=== PATIENT | female | born 1940 | race Caucasian/White ===

== ENCOUNTER 2017-11-07 15:49 | Inpatient (IN) | payer OTHER ==
[~2017-11-07] VITALS: Ht 170.2 cm; Wt 81.7 kg
[~2017-11-07 15:49] MED LIST: CLOP75TA41 PO; DOCU-94 PO; HYDR-4683 PO; METO25TA5 PO; OMEP20CA74 PO; SERT-274 PO; TEMA30CA PO
[2017-11-07 16:49] LABS: Basophils # (auto) 0.1 uL; Basophils % (auto) 0.5 % (0.0-2.0); Eosinophils # (auto) 0.3 uL; Eosinophils % (auto) 2.5 % (0.0-7.0); Hemoglobin 12.7 g/dL (12.2-16.2); Lymphocytes # (auto) 1.4 uL; Lymphocytes % (auto) 13.2 % (10.0-50.0); Mean Corpuscular Hemoglobin 30.3 pg (28.0-32.0); Mean Corpuscular Hgb Conc. 33.4 g/dL (32.0-36.0); Mean Corpuscular Volume 90.7 fL (80.0-100.0); Monocytes # (auto) 0.8 uL; Monocytes % (auto) 7.4 % (0.0-12.0); Neutrophils # (auto) 8.4 uL; Neutrophils % (auto) 76.4 % (37.0-80.0); Platelet Count (auto) 190 10^3/uL (140-450); Red Blood Cells 4.18 10^6/uL (4.0-5.20); Red Cell Distribution Width 12.3 % (11.8-14.3)
[2017-11-07 16:57] LABS: Alanine Aminotransferase 81 U/L (13-56); Albumin 2.6 g/dL (3.4-5.0); Anion Gap 8 (5-15); BUN/Creatinine Ratio 25.4; Blood Urea Nitrogen 47 mg/dL (7-18); Calcium 8.9 mg/dL (8.5-10.1); Carbon Dioxide 26 mmol/L (21-32); Chloride 103 mmol/L (98-107); GFR African American 34 mL/min; GFR Non-African American 28 mL/min; Glucose 107 mg/dL (74-106); Magnesium 2.2 mg/dL (1.6-2.6); Potassium 4.7 mmol/L (3.5-5.1); Sodium 137 mmol/L (136-145)
[2017-11-07 17:03] LABS: Alkaline Phosphatase 151 U/L (45-117); Aspartate Aminotransferase 29 U/L (15-37); Bilirubin, Total 0.7 mg/dL (0.2-1.0); Total Protein 6.2 g/dL (6.4-8.2)
[2017-11-07] MEDS ORDERED: POTA20TA53 PO (17:05)
[2017-11-07] MEDS ORDERED: FURO20TA3 PO (17:05)
[2017-11-07] MEDS ORDERED: SENN1TAB14 PO (17:05)
[2017-11-07] MEDS ORDERED: RISP0.2512 PO (17:05)
[2017-11-07] MEDS ORDERED: TRAM50TA2 PO (17:05)
[2017-11-07 17:19] LABS: Amylase 34 U/L (25-115); Lipase 84 U/L (73-393)
[2017-11-07 17:22] LABS: INR 0.95 (0.9-1.15); Partial Thromboplastin Time 31.5 sec (22.64-33.71); Prothrombin Time 10.3 sec (9.37-12.3)
[2017-11-07 22:10] LABS: Urine Bacteria MANY /hpf (None Seen); Urine Blood TRACE /uL (Negative); Urine Hyaline Cast FEW /lpf (0 - 2); Urine Specific Gravity 1.016 (1.001-1.035); Urine WBC 57 /hpf (0 - 5); Urine WBC Clumps PRESENT /hpf (None Seen)
[2017-11-07] MEDS ORDERED: cefTRIAXone 1GM/10ml IVPUSH 10 ML IV ONE (22:45)
[2017-11-08] MEDS ORDERED: ACETAMINOPHEN 500 MG TAB PO PRN (00:45)
[2017-11-08] MEDS ORDERED: LORazepam 0.5 MG TAB PO PRN (00:45)
[2017-11-08] MEDS ORDERED: HYDROcodone-ACET 5/325MG TAB PO PRN (00:45)
[2017-11-08] MEDS ORDERED: ONDANSETRON HCL 4 MG/2 ML VIAL IV PRN (00:45)
[2017-11-08] MEDS ORDERED: TEMAZEPAM 15 MG CAP PO PRN (01:15)
[2017-11-08 01:52] VITALS: BP 120/69
[2017-11-08 02:02] VITALS: BP 120/69
[2017-11-08 05:57] VITALS: BP 140/74
[2017-11-08 07:28] LABS: Basophils # (auto) 0 uL; Basophils % (auto) 0.3 % (0.0-2.0); Eosinophils # (auto) 0.3 uL; Eosinophils % (auto) 3.2 % (0.0-7.0); Hematocrit 36.1 % (36.0-46.0); Hemoglobin 12.4 g/dL (12.2-16.2); Lymphocytes # (auto) 0.9 uL; Lymphocytes % (auto) 9.3 % (10.0-50.0); Mean Corpuscular Hemoglobin 30.8 pg (28.0-32.0); Mean Corpuscular Hgb Conc. 34.4 g/dL (32.0-36.0); Mean Corpuscular Volume 89.7 fL (80.0-100.0); Monocytes # (auto) 0.7 uL; Monocytes % (auto) 7.6 % (0.0-12.0); Neutrophils # (auto) 7.5 uL; Neutrophils % (auto) 79.6 % (37.0-80.0); Platelet Count (auto) 175 10^3/uL (140-450); Red Blood Cells 4.03 10^6/uL (4.0-5.20); Red Cell Distribution Width 12.3 % (11.8-14.3); White Blood Cell 9.4 10^3/uL (4.4-10.8)
[2017-11-08 07:43] LABS: Calcium 9.2 mg/dL (8.5-10.1); Potassium 4.6 mmol/L (3.5-5.1)
[2017-11-08 09:29] VITALS: BP 118/53
[2017-11-08] MEDS ORDERED: DOCUSATE SOD 100 MG CAP PO SCH (10:00)
[2017-11-08] MEDS ORDERED: POTASSIUM CHL 20 Meq TABLET PO SCH (10:00)
[2017-11-08] MEDS ORDERED: FUROSEMIDE 40 MG TAB PO SCH (10:00)
[2017-11-08] MEDS ORDERED: SERTRALINE HCL 50 MG TAB PO SCH (10:00)
[2017-11-08] MEDS ORDERED: CLOPIDOGREL BISULFATE 75 MG TAB PO SCH (10:00)
[2017-11-08] MEDS ORDERED: METOPROLOL TARTRATE 25 MG TAB PO SCH (10:00)
[2017-11-08] MEDS ORDERED: risperiDONE 1 MG TAB PO SCH (10:00)
[2017-11-08 12:30] VITALS: BP 106/56
[2017-11-08] MEDS ORDERED: SENN1TAB14 PO (12:48)
[2017-11-08] MEDS ORDERED: POLY33504 PO (12:48)
[2017-11-08] MEDS ORDERED: LEVO500T21 PO (12:48)
[2017-11-08] MEDS ORDERED: DOCU-94 PO (12:48)
[2017-11-08] MEDS ORDERED: MOMLQ PO (12:48)
[2017-11-08 17:03] VITALS: BP 110/61
[2017-11-08] MEDS ORDERED: cefTRIAXone 1GM/10ml IVPUSH 10 ML IV SCH (22:00)
== END 2017-11-08 21:00 | disposition home health service (06) | DRG 445 ==
LOC: EDBD 15:49 → ER 15:51 → EAST 15:52
PROVIDERS: ADMIT Nurse Practitioner Family; ATTEND Internal Medicine
DX: K80.20 Calculus of gallbladder without cholecystitis without obstruction (principal); N39.0 Urinary tract infection, site not specified; G81.91 Hemiplegia, unspecified affecting right dominant side; I11.0 Hypertensive heart disease with heart failure; I50.9 Heart failure, unspecified; F17.200 Nicotine dependence, unspecified, uncomplicated; F03.90 Unspecified dementia, unspecified severity, without behavioral disturbance, psychotic disturbance, mood disturbance, and anxiety; I25.10 Atherosclerotic heart disease of native coronary artery without angina pectoris; G25.81 Restless legs syndrome; F32.9 Major depressive disorder, single episode, unspecified; G47.00 Insomnia, unspecified; K21.9 Gastro-esophageal reflux disease without esophagitis; K59.00 Constipation, unspecified; Z74.01 Bed confinement status; Z79.899 Other long term (current) drug therapy; Z86.73 Personal history of transient ischemic attack (TIA), and cerebral infarction without residual deficits; Z90.49 Acquired absence of other specified parts of digestive tract
CPT/HCPCS: 36415; 51702; 71045; 74176; 76705; 80048; 80053; 81001; 82150; 83605; 83690; 83735; 84484; 85025; 85610; 85730; 87040; 87086; 93005; 94761; 96374

== ENCOUNTER 2019-06-13 09:06 | Inpatient (IN) | payer OTHER ==
[~2019-06-13] VITALS: Ht 167.6 cm; Wt 66.7 kg
[~2019-06-13 09:06] MED LIST changes: +FURO20TA3 PO; -HYDR-4683 PO; +HYDR-4833 PO; +LEVO500T21 PO; +MOMLQ PO; +POLY33504 PO; +POTA-220 PO; +RISP0.2512 PO; +SENN1TAB14 PO; +TRAM50TA2 PO
[2019-06-13 09:59] LABS: Basophils # (auto) 0 uL; Basophils % (auto) 0.3 % (0.0-2.0); Eosinophils # (auto) 0.1 uL; Eosinophils % (auto) 0.8 % (0.0-7.0); Hematocrit 33.1 % (36.0-46.0); Hemoglobin 11.2 g/dL (12.2-16.2); Lymphocytes # (auto) 0.7 uL; Lymphocytes % (auto) 7.6 % (10.0-50.0); Mean Corpuscular Hemoglobin 31.9 pg (28.0-32.0); Mean Corpuscular Hgb Conc. 33.9 g/dL (32.0-36.0); Mean Corpuscular Volume 93.9 fL (80.0-100.0); Monocytes # (auto) 0.9 uL; Monocytes % (auto) 9.9 % (0.0-12.0); Neutrophils # (auto) 7.4 uL; Neutrophils % (auto) 81.4 % (37.0-80.0); Platelet Count (auto) 189 10^3/uL (140-450); Red Blood Cells 3.52 10^6/uL (4.0-5.20); Red Cell Distribution Width 12.8 % (11.8-14.3); White Blood Cell 9.1 10^3/uL (4.4-10.8)
[2019-06-13 10:20] LABS: Anion Gap 7 (5-15); Blood Urea Nitrogen 50 mg/dL (7-18); Carbon Dioxide 27 mmol/L (21-32); Chloride 105 mmol/L (98-107); Glucose 119 mg/dL (74-106); Potassium 4.9 mmol/L (3.5-5.1); Sodium 139 mmol/L (136-145)
[2019-06-13 10:21] LABS: Alanine Aminotransferase 29 U/L (13-56); Albumin 2.4 g/dL (3.4-5.0); Aspartate Aminotransferase 14 U/L (15-37); BUN/Creatinine Ratio 24.8; Calcium 8.8 mg/dL (8.5-10.1); GFR African American 31 mL/min; GFR Non-African American 25 mL/min
[2019-06-13 10:25] LABS: Alkaline Phosphatase 208 U/L (45-117); Bilirubin, Total 0.7 mg/dL (0.2-1.0); Total Protein 6.1 g/dL (6.4-8.2)
[2019-06-13 12:01] LABS: Urine Bacteria MOD /hpf (None Seen); Urine Blood 1+ /uL (Negative); Urine Hyaline Cast MANY /lpf (0 - 2); Urine Mucus FEW (None Seen); Urine Specific Gravity 1.014 (1.001-1.035); Urine WBC 1009 /hpf (0 - 5); Urine WBC Clumps PRESENT /hpf (None Seen)
[2019-06-13] MEDS ORDERED: cefTRIAXone 1GM/50ML D5W 50 ML IV ONE (12:30)
[2019-06-13] MEDS ORDERED: AZITHROMYCIN 500MG/ 250ML 250 ML IV ONE (17:30)
[2019-06-13] MEDS ORDERED: MORPHINE SULF INJ 2 MG/ML SYRINGE 1ML IV PRN (18:15)
[2019-06-13] MEDS ORDERED: LEVOFLOXACIN 500MG 100 ML IV ONE (18:15)
[2019-06-13] MEDS ORDERED: NITROGLYCERIN 0.4 MG SL TAB SL PRN (18:15)
[2019-06-13] MEDS ORDERED: ACETAMINOPHEN 325 MG TAB PO PRN (18:15)
[2019-06-13] MEDS: SODIUM CHLORIDE 0.9% 1,000 ML IV SCH (18:58)
[2019-06-13 20:15] VITALS: BP 109/62
--- NOTE | 2019-06-13 20:20 | NUR ---
Admission Note Pt admitted to room 201 in stable cond. Pt oriented to room and procedures and POC discussed with pt and pt verbalizes understanding. Pt has hx CVA and is with pressured speech, aphasic, right sided facial droop ,and right sided upper and lower extremity deficits. Pt appears to be alert and oriented to self and is able to answer some questions appropriately. Bed is low, wheels are locked, and call light is with in reach. Bed alarm is set for pt safety.
[2019-06-13] MEDS: METOPROLOL TARTRATE 25 MG TAB PO SCH (23:26)
[2019-06-13] MEDS: TEMAZEPAM 15 MG CAP PO SCH (23:26)
[2019-06-13] MEDS: risperiDONE 1 MG TAB PO SCH (23:26)
[2019-06-13] MEDS: SERTRALINE HCL 50 MG TAB PO SCH (23:27)
--- NOTE | 2019-06-13 23:49 | NUR ---
MED REC VERIFICATION: Attempted to verify patient's home medication list with caregiver Shankar Ortegaebenezer: [phone]. Unable to verify at this time because caregiver does not have the list of medications with him at this time and stated to call back during the day. Will endorse to day shift RN.
[2019-06-14] MEDS ORDERED: PNEUMOCOCCAL VACC POLYS 25 MCG/0.5 ML VIAL IM ONE (00:15)
[2019-06-14] MEDS ORDERED: INFLUENZA QUAD 2019-2020 0.5ml SYRG IM ONE (00:15)
[2019-06-14] MEDS: SODIUM CHLORIDE 0.9% 1,000 ML IV SCH ×3 (04:15→22:22)
[2019-06-14 05:00] VITALS: BP 125/69
--- NOTE | 2019-06-14 07:50 | NUR ---
PT AND 0 X 1, BUT POSSIBLY MORE PT HAS DIFFICULTY SPEAKING. APPOX 300 MLS CLEAR YELLOW URINE NOTED IN BLACK. BED ALARM ON. PT TURNED TO LEFT SIDE. PT REPORTS SLIGHT PAIN IN RIGHT LEG. WILL CONTINUE TO MONITOR.
[2019-06-14 09:00] VITALS: BP 140/72
--- NOTE | 2019-06-14 09:21 | NUR ---
CONTACT INFO BROTHER REPORTS PT HOME CARE IS [facility] [address] [facility], [id number]. HOUSE PHONE [phone]. [facility] [phone] CELL NUMBER. BETHANY DORSEY BROTHER, .
[2019-06-14] MEDS ORDERED: PANTOPRAZOLE 40 MG TAB PO SCH (10:00)
[2019-06-14] MEDS: SENNA 8.6 MG TAB PO SCH (10:52)
[2019-06-14] MEDS: CLOPIDOGREL BISULFATE 75 MG TAB PO SCH (10:53)
[2019-06-14] MEDS: risperiDONE 1 MG TAB PO SCH ×2 (10:54→22:21)
[2019-06-14] MEDS: METOPROLOL TARTRATE 25 MG TAB PO SCH ×2 (10:54→22:20)
[2019-06-14] MEDS: NIFEdipine ER 30 MG TAB PO SCH (10:55)
[2019-06-14] MEDS: POTASSIUM CHL 20 Meq TABLET PO SCH (10:56)
[2019-06-14] MEDS: FUROSEMIDE 40 MG TAB PO SCH (10:56)
[2019-06-14] MEDS: SERTRALINE HCL 50 MG TAB PO SCH ×2 (10:57→22:21)
--- NOTE | 2019-06-14 11:00 | NUR ---
CRUSHED PATIENT MEDICATIONS AND GAVE WITH APPLE SAUCE, PT TOLERATED WELL. NO SIGNS OF ASPIRATION. PT REPOSITIONED TO RIGHT AND SACRUM CLEANED WITH NEW Z GUARD AND OPTIFOAM APPLIED.
--- NOTE | 2019-06-14 11:20 | NUR ---
CALLED PBX AND PAGED SPEECH THERAPY FOR SWALLOW EVAL.
--- NOTE | 2019-06-14 11:49 | NUR ---
NUTRITION CONSULT/ASSESSMENT NOTES Please refer to link notes of nutrition screen form filed under the intervention section of the plan of care for further details. Est. Needs: 1700 kcal to 2050 kcal (25-30 kcal/kgBW), 54 gms to 68 gms pro (0.8-1.0 gms/kgBW). Will continue to monitor pertinent labs and reassess nutrient need prn Thank you for this consult. Addendum: 06/14/19 at [address] Amended: Links added.
[2019-06-14 13:00] VITALS: BP 96/50
[2019-06-14 13:41] LABS: Basophils # (auto) 0 uL; Basophils % (auto) 0.7 % (0.0-2.0); Eosinophils # (auto) 0.1 uL; Eosinophils % (auto) 1.8 % (0.0-7.0); Hematocrit 33.4 % (36.0-46.0); Hemoglobin 11.4 g/dL (12.2-16.2); Lymphocytes # (auto) 0.9 uL; Lymphocytes % (auto) 12.6 % (10.0-50.0); Mean Corpuscular Hemoglobin 31.9 pg (28.0-32.0); Mean Corpuscular Volume 93.7 fL (80.0-100.0); Monocytes # (auto) 0.5 uL; Monocytes % (auto) 7.2 % (0.0-12.0); Neutrophils # (auto) 5.6 uL; Neutrophils % (auto) 77.7 % (37.0-80.0); Platelet Count (auto) 208 10^3/uL (140-450); Red Blood Cells 3.57 10^6/uL (4.0-5.20); Red Cell Distribution Width 12.6 % (11.8-14.3); White Blood Cell 7.2 10^3/uL (4.4-10.8)
--- NOTE | 2019-06-14 13:47 | NUR ---
SPOKE WITH DR VARGAS. NEW ORDERS TO DC PATIENT ONCE CLEARED BY DR BYRD. DR BYRD REPORTS HE SAW PATIENT AND IS JUST WAITING ON NEW LABS TO DC PATIENT. NEW ORDERS TO WEAN OFF 02 AND DC BLACK.
[2019-06-14] MEDS ORDERED: NITR-52 PO ×2 (13:56→13:59)
[2019-06-14] MEDS ORDERED: DOXY-338 PO (13:56)
[2019-06-14] MEDS ORDERED: LEVO500T21 PO (13:56)
[2019-06-14] MEDS ORDERED: NITROFURANTOIN (MONO) 100 mg CAP PO ONE (14:00)
[2019-06-14] MEDS ORDERED: DOXYCYCLINE 100 MG TAB/CAP PO ONE (14:00)
[2019-06-14 14:07] LABS: BUN/Creatinine Ratio 29.9; Potassium 3.9 mmol/L (3.5-5.1)
--- NOTE | 2019-06-14 14:15 | NUR ---
DC'D BLACK PER MD ORDER. APPROX 725 MLS CLEAR YELLOW URINE NOTED IN BAG. PT OXYGEN 90 PERCENT ON ROOM AIR. MRSA SWAB SENT AND LILLY AREA CLEANED.
--- NOTE | 2019-06-14 14:44 | NUR ---
CALLED DON CAREGIVER, [facility] REPORTS PT HAS NOT RECEIVED FLU OR PNEUMONIA VACCINE THIS YEAR, WILL GIVE BOTH.
--- NOTE | 2019-06-14 15:15 | NUR ---
02 GOING DOWN TO 86 PERCENT ON ROOM AIR, 2 L NC PUT BACK ON PATIENT. WILL NOTIFY DR VARGAS.
--- NOTE | 2019-06-14 15:47 | NUR ---
CALLED AND LEFT MESSAGE FOR DR TYE CHEUNG MD KNOW PT 02 GOING TO 86 ON ROOM AIR. AWAITING CALL BACK. SPEECH THERAPIST HERE TO DO SWALLOW EVAL
--- NOTE | 2019-06-14 16:10 | NUR ---
D/C Planning Per SS consult for home health and to return to [facility]. Contacted [facility] ph:) Fax:) faxed medical records. Per Uzma from [facility] pt has been accepted and service to start within 48hrs upon d/c day. Contacted Tadeo Ph:) from [facility] advised him Pt will be discharging once Dr. Max saavedra Pt. Pt brother Dominguez Ph:) will be transporting Pt to [facility] [address] [facility] [address].
--- NOTE | 2019-06-14 16:27 | NUR ---
D/C Planning Per second consult order for home oxygen 2l/min via nasal cannula continuous. Contacted [facility] Ph:) Fax:) faxed medical records. Contacted [facility]:( [phone]) Fax:( [phone]) faxed medical records requesting authorization for oxygen. pending on authorization.
--- NOTE | 2019-06-14 16:29 | NUR ---
SWALLOW EVALUATED. PATIENT ABLE TO FOLLOW DIRECTIONS. RIGHT SIDE WEAKNESS. PATIENT ABLE TO TOLERATE PUREE DIET TEXTURE WITH NECTAR THICKENED LIQUIDS. PATIENT COUGHED ON THIN LIQUIDS. VERY WEAK COUGH. NURSING NOTIFIED.
[2019-06-14 17:00] VITALS: BP 105/55
--- NOTE | 2019-06-14 17:25 | NUR ---
PROCUREMENT INTERNSHIP REPORTS PT VOIDED LARGE AMOUNT ON CHUCKS. PT CLEANED. PT REPORTS PAIN, WILL CHECK FOR PAIN MEDS.
[2019-06-14] MEDS: HYDROcodone-ACET 5/325MG TAB PO PRN (17:28)
[2019-06-14] MEDS ORDERED: LEVOFLOXACIN 250MG 50 ML IV SCH (18:00)
[2019-06-14 22:00] VITALS: BP 136/56
[2019-06-14] MEDS: NITROFURANTOIN (MONO) 100 mg CAP PO SCH (22:20)
[2019-06-14] MEDS: TEMAZEPAM 15 MG CAP PO SCH (22:21)
[2019-06-14] MEDS: DOXYCYCLINE 100 MG TAB/CAP PO SCH (22:21)
[2019-06-15 05:00] VITALS: BP 99/52
--- NOTE | 2019-06-15 08:30 | NUR ---
PT RESTING IN BED, NO DISTRESS NOTED. PT VOIDED LARGE AMOUNT ON CHUCKS. PT LILLY AREA CLEANED AND NEW CHUCKS PLACED. PT TURNED TO RIGHT SIDE. PT REPORTS PAIN ON RIGHT SIDE, PT RUBBING RIGHT LEG. PT REPORTS APPROX 5/10 FROM WHAT CAN BE UNDERSTOOD BEING VERBALIZED, WILL GIVE PRN PAIN MED. CALL LIGHT IN REACH, BED ALARM ON, WILL CONTINUE TO MONITOR.
[2019-06-15 09:00] VITALS: BP 107/53
[2019-06-15] MEDS: NIFEdipine ER 30 MG TAB PO SCH (10:00)
[2019-06-15] MEDS: HYDROcodone-ACET 5/325MG TAB PO PRN ×2 (10:16→22:48)
[2019-06-15] MEDS: NITROFURANTOIN (MONO) 100 mg CAP PO SCH (10:18)
[2019-06-15] MEDS: risperiDONE 1 MG TAB PO SCH ×2 (10:19→22:47)
[2019-06-15] MEDS: METOPROLOL TARTRATE 25 MG TAB PO SCH ×2 (10:20→22:46)
[2019-06-15] MEDS: FUROSEMIDE 40 MG TAB PO SCH (10:20)
[2019-06-15] MEDS: CLOPIDOGREL BISULFATE 75 MG TAB PO SCH (10:21)
[2019-06-15] MEDS: POTASSIUM CHL 20 Meq TABLET PO SCH (10:22)
[2019-06-15] MEDS: SODIUM CHLORIDE 0.9% 1,000 ML IV SCH ×2 (10:23→20:15)
[2019-06-15] MEDS: SERTRALINE HCL 50 MG TAB PO SCH ×2 (10:23→22:47)
[2019-06-15] MEDS: SENNA 8.6 MG TAB PO SCH (10:23)
[2019-06-15] MEDS: DOXYCYCLINE 100 MG TAB/CAP PO SCH (10:23)
--- NOTE | 2019-06-15 10:30 | NUR ---
PT REPOSITIONED TO LEFT SIDE.
--- NOTE | 2019-06-15 10:55 | NUR ---
WOUND CARE NOTE: PATIENT NOTED TO HAVE LOW DOMENICO SCORE OF 10. PLACED PATIENT ON SKIN INTEGRITY MONITORING FOR HER LOW DOMENICO SCORES. PATIENT HAS A DISCHARGE ORDER AT THIS TIME PENDING HOME OXYGEN AUTHORIZATION. PATIENT IS NOTED TO HAVE BLANCHABLE REDNESS TO THE RIGHT SACRUM. NO OPEN WOUNDS NOTED, ALL BONY PROMINENCES ARE BLANCHABLE. RECOMMEND IF PATIENT CONTINUES HER HOSPITAL STAY: FREQUENT TURN SCHEDULE Q 2 HOURS, PRN CONDITION PERMITS, WITH PRESSURE REDISTRIBUTION USING PILLOWS/WEDGES, BID/PRN APPLICATION WITH MOISTURE BARRIER CREAM TO SACRUM/BUTTOCKS/PERINEUM, COVERING UPPER SACRUM WITH OPTIFOAM GENTLE SACRAL DRESSING PREVENTATIVE, SPECIALTY AIR MATTRESS, DIETARY CONSULT, SKIN/WOUND CARE PLAN, CONTINUED MONITORING BY WOUND CARE TEAM.
--- NOTE | 2019-06-15 11:22 | NUR ---
CALLED DR BYRD TO REQUEST CLEARANCE FOR DC. LEFT MESSAGE WITH ANSWERING SERVICE, AWAITING CALL BACK. PAGED BOX LIDDER AND REQUSTED CALL BCK TO FOLLOW UP ON
--- NOTE | 2019-06-15 11:43 | NUR ---
CALLED [facility] AND SPOKE WITH LUIS ANTONIO. LUIS ANTONIO REPORTS SHE CANNOT GET A HOLD OF CAREGIVER TO COORDINATE DELIVERY.
--- NOTE | 2019-06-15 11:48 | NUR ---
CALLED [facility] CAREGIVER, REPORTED PT NEEDS HOME O2 AND FOR HIM TO CALL [facility] TO COORDINATE DELIVERY. YAKELIN CALLED BACK AND REPORTS PT HAS AUTHORIZATION FOR O2. NOTIFIED YAKELIN PT CAREGIVER [facility] NOTIFIED TO CALL [facility] TO COORDINATE DELIVERY.
--- NOTE | 2019-06-15 11:57 | NUR ---
WOUND CARE SAW PATIENT FOR HIGH DOMENICO SCORE. THEY REPORT TO APPLY Z GAURD AND OPTIFOAM TO SACRUM AND TOOK PHOTOS OF SACRUM.
--- NOTE | 2019-06-15 12:16 | NUR ---
PT REPOSITIONED TO RIGHT SIDE AND STUDENT NURSE PERFORMED ORAL CARE, BRUSHING AND RINSING OF TEETH.
--- NOTE | 2019-06-15 12:21 | NUR ---
DR BROWER CALLED BACK, REPORTS PT CAN BE DISCHARGED.
--- NOTE | 2019-06-15 12:26 | NUR ---
CALLED LUIS ANTONIO AT [facility]. LUIS ANTONIO REPORTS SHE SPOKE WITH CAREGIVER AND OXYGEN IS BEING DELIVERED TO [facility] PER CAREGIVER REQUEST, AND SHE REPORTS ELECTRON TUBE ASSEMBLER IS GOING TO ARRANGE MEDICAL TRANSPORT.
[2019-06-15 13:00] VITALS: BP 105/57
--- NOTE | 2019-06-15 13:07 | NUR ---
LAB CALLED, PT POSITIVE FOR ESBL IN URINE. PT ALREADY HAS ISOLATION PRECAUTIONS FOR ESBL IN URINE. CALLED AND LEFT MESSAGE FOR DR VARGAS. NOTIFIED MD PT WAS POSITIVE FOR ESBL IN URINE, PATIENT HOME HEALTH AND O2 SET UP, JUST WAITING ON DELIVERY TO [facility]. LEFT IN MESSAGE CAREGIVER MEJIA SETTING UP TRANSPORT WITH AMBULANCE COMPANY WHEN READY TO NC. NOTIFIED MD DR BROWER CLEARED PT FOR NEPHRO WELL. AWAITING CALL BACK.
--- NOTE | 2019-06-15 14:04 | NUR ---
PT REPOSITIONED BY SHIPPING RECEIVING CLERK.
--- NOTE | 2019-06-15 14:50 | NUR ---
SPOKE WITH BROTHER AND UPDATED HIM ON PLAN OF CARE. BROTHER NOTIFIED PT NEEDS HOME O2 AND HOME HEALTH. BROTHER NOTIFIED HOME HEALTH SET UP, DELIVERY OF 02 PENDING. BROTHER UPDATED ON PATIENT STATUS AND DIRECT CARE.
--- NOTE | 2019-06-15 16:13 | NUR ---
CALLED AND LEFT MESSAGE FOR DR VARGAS AND ASKED IF MD WANTS ABX FOR PATIENT UPON DISCHARGE. AWAITING CALL BACK.
--- NOTE | 2019-06-15 16:18 | NUR ---
CALLED LUIS ANTONIO FROM [facility], ASKED IF PT O2 HAS BEEN DELIVERED AND ASKED FOR A ETA IF IT HASN'T BEEN DELIVERED YET. LUIS ANTONIO REPORTS SHE WILL HAVE THE PLANE TABLEMAN CALL BACK TO GIVE AN ESTIMATED TIME OF DELIVERY.
--- NOTE | 2019-06-15 16:21 | NUR ---
CAREGIVER DON CALLED AND REPORTS 02 HAS BEEN DELIVERED TO [facility] PT HOME.
--- NOTE | 2019-06-15 16:34 | NUR ---
SPOKE WITH DR VARGAS. NOTIFIED MD PT HAS ESBL IN URINE. REQUESTS PICC LINE. CALLED HOUSE SUP, NO PICC NURSE UNTIL MONDAY. REPORTS TO DC PT TO SNIFF. NEW ORDERS FOR ERTAPENEM IV X 10 DAYS. SPOKE WITH ROWENA AND GOT APPROVAL. SPOKE WITH YAKELIN PAZ. YAKELIN REPORTS TO FAX FACE SHEET, H AND P, MED LIST, AND CHEST X RAY TO [facility], [facility], AND [facility] PATIENT AUTHORIZATION NUMBER IS [id number]. [facility] AUTH NUMBER [id number]. Addendum: 06/15/19 at 1751 by HUNG MACIAS RN [place]RE[place] AUTHORIZATION NUMBER IS [id number] AND [facility] AUTH NUMBER IS [id number].
[2019-06-15] MEDS ORDERED: INVANZ IV (16:39)
[2019-06-15 17:00] VITALS: BP 106/56
[2019-06-15] MEDS ORDERED: ERTAPENEM SOD INJ 1 GM in SODIUM CHL 0.9% 50 ML IV ONE (17:00)
[2019-06-15] MEDS ORDERED: PANTOPRAZOLE 40 MG TAB PO ONE (17:00)
--- NOTE | 2019-06-15 17:10 | NUR ---
TRANSFER PAPER WORK SIGNED BY DR VARGAS. ASKED MD IF PT COULD TRANSFER TO SNF W/O MIDLINE OR PICC LINE. REPORTS PT CAN. NEW ORDERS TO DC NITROFURANTOIN AND DOXYCYCLINE.
--- NOTE | 2019-06-15 17:43 | NUR ---
[employer] ARCHITECT FAXED PT INFORMATION TO: [facility] [phone], PHONE NUMBER [phone] [facility] FAX [phone], PHONE NUMBER [phone] [facility] [place] FAX [phone], PHONE NUMBER [phone] [facility] [place] FAX [phone] JOLEEN AT [facility] [phone] PT ISO INFORMATION AND ANTIBIOTIC PUT ON EVERY COVER SHEET PER YAKLEIN RASCON REQUEST. JOLEEN FROM [facility] CALLED AND REQUESTED PT RECORDS BE SENT TO [facility] AND [facility].
--- NOTE | 2019-06-15 18:38 | NUR ---
SPOKE WITH PATIENT . NOTIFIED PATIENT DOCTOR IS RECOMMENDING SHE GO TO A GROUP HOME FACILITY. ASKED PATIENT IF SHE WAS WILLING TO GO. PT SPEECH SLURRED, BUT PATIENT REPORTS, "I DON'T KNOW." PT BEGAN TO CRY. ASKED PATIENT IF SHE WAS IN PAIN, PT SHOOK HER HEAD NO. PT REPOSITIONED FROM SUPINE TO RIGHT SIDE. ASKED PATIENT IF SHE WANTED ME TO CALL HER BROTHER, PATIENT SHOOK HER HEAD YES. CALLED PT BROTHER, NOTIFIED HIM MD IS RECOMMENDING A GROUP HOME FACILITY. BROTHER REPORTS HE DOESN'T FEEL HIS SISTER WOULD BE COMFORTABLE AT A GROUP HOME FACILITY. NOTIFIED BROTHER PATIENT WANTS TO SEE HIM. BROTHER AWARE. BROTHER REPORTS HE WILL COME SEE HIS SISTER TOMORROW AT APPROX 0830.
[2019-06-15 22:00] VITALS: BP 113/59
[2019-06-15] MEDS: TEMAZEPAM 15 MG CAP PO SCH (22:46)
[2019-06-16] MEDS: METOPROLOL TARTRATE 25 MG TAB PO SCH (00:55)
[2019-06-16 05:00] VITALS: BP 101/59
[2019-06-16] MEDS: SODIUM CHLORIDE 0.9% 1,000 ML IV SCH (05:48)
[2019-06-16 06:29] LABS: Basophils # (auto) 0 uL; Basophils % (auto) 0.4 % (0.0-2.0); Eosinophils # (auto) 0.1 uL; Eosinophils % (auto) 1.6 % (0.0-7.0); Hematocrit 31.3 % (36.0-46.0); Hemoglobin 10.6 g/dL (12.2-16.2); Lymphocytes # (auto) 0.5 uL; Lymphocytes % (auto) 5.2 % (10.0-50.0); Mean Corpuscular Hgb Conc. 33.8 g/dL (32.0-36.0); Mean Corpuscular Volume 94.7 fL (80.0-100.0); Monocytes # (auto) 0.4 uL; Monocytes % (auto) 4.5 % (0.0-12.0); Neutrophils % (auto) 88.3 % (37.0-80.0); Platelet Count (auto) 222 10^3/uL (140-450); Red Cell Distribution Width 12.6 % (11.8-14.3); White Blood Cell 9.1 10^3/uL (4.4-10.8)
[2019-06-16 06:48] LABS: Potassium 3.2 mmol/L (3.5-5.1)
[2019-06-16 06:56] LABS: BUN/Creatinine Ratio 30.8
--- NOTE | 2019-06-16 07:23 | NUR ---
Opening Shift Note: Assumed care of patient, awake and alert. No S/S of distress/SOB or pain. Bed in lowest locked position, side rails up x 2, call light within reach. Patient instructed on POC and to call for assist PRN, will continue to monitor for changes Q1hr and PRN.
--- NOTE | 2019-06-16 08:41 | NUR ---
Family at bedside. Discussed POC with patient and family. Brother states that he does not want sister to go to SNF. Will continue to monitor patient.
[2019-06-16 09:00] VITALS: BP 119/57
--- NOTE | 2019-06-16 09:30 | NUR ---
WOUND CARE NOTE: ORDERED SYNERGY AIR ELITE AIR MATTRESS AT THIS TIME. PATIENT TO BE PLACED, PENDING DELIVERY BY [facility].
[2019-06-16] MEDS ORDERED: ERTAPENEM SOD INJ 1 GM in SODIUM CHL 0.9% 50 ML IV SCH (10:00)
[2019-06-16] MEDS: FUROSEMIDE 40 MG TAB PO SCH (10:24)
[2019-06-16] MEDS: risperiDONE 1 MG TAB PO SCH (10:24)
[2019-06-16] MEDS: POTASSIUM CHL 20 Meq TABLET PO SCH (10:24)
[2019-06-16] MEDS: SENNA 8.6 MG TAB PO SCH (10:25)
[2019-06-16] MEDS: CLOPIDOGREL BISULFATE 75 MG TAB PO SCH (10:25)
[2019-06-16] MEDS: SERTRALINE HCL 50 MG TAB PO SCH (10:25)
[2019-06-16] MEDS: NIFEdipine ER 30 MG TAB PO SCH (10:25)
--- NOTE | 2019-06-16 11:59 | NUR ---
[facility] called. States patient needs to be upgraded to level 4 transfer authorization before they can accept patient.
--- NOTE | 2019-06-16 12:45 | NUR ---
Dr. Arechiga called for patient status. Dr. winters. Will continue to monitor.
--- NOTE | 2019-06-16 12:50 | NUR ---
Patients brother contacted regarding patient pending placement in SNF. Brother first denied transfer but after educated on need for SNF at this time brother agreed to have patient transferred.
[2019-06-16 13:00] VITALS: BP 94/49
--- NOTE | 2019-06-16 13:01 | NUR ---
Dr. Arechiga paged regarding patient and family now willing to transfer to SNF at this time.
[2019-06-16] MEDS ORDERED: MUPIROCIN 2% OINT 15gm or 22gm EACHNOSTRI SCH (13:15)
--- NOTE | 2019-06-16 13:57 | NUR ---
division operations manager telephone directory distributor driver paged regarding transfer. Awaiting call back.
--- NOTE | 2019-06-16 14:07 | NUR ---
manager psychology canned food reconditioning inspector, called back. Gave number for Alisia to update level of transfer for patient.
--- NOTE | 2019-06-16 14:09 | NUR ---
Alisia ray. States she needs to speak with [facility] regarding transfer.
--- NOTE | 2019-06-16 14:11 | NUR ---
[facility] contacted. Informed them to contact case consultant Alisia for transfer update.
--- NOTE | 2019-06-16 16:24 | NUR ---
technology adoption manager Alisia contacted for an update regarding patients transfer to [facility].
[2019-06-16 17:00] VITALS: BP 127/72
--- NOTE | 2019-06-16 17:30 | NUR ---
IV removal: IV DC'd with clean sterile technique, catheter fully intact. Pressure dressing applied to site. Patient tolerated well.
--- NOTE | 2019-06-16 17:30 | NUR ---
IV insertion: IV access obtained, via clean sterile technique by inserting 20 gauge catheter at left forearm after 1 attempt. IV secured properly. No trauma to site. Patient tolerated well.
--- NOTE | 2019-06-16 17:53 | NUR ---
[facility] contact to set up transport for patient to [facility]. Estimated time of slat pickler is 1900
--- NOTE | 2019-06-16 18:00 | NUR ---
Attempted to call [facility]. No answer. Will attempt call again.
--- NOTE | 2019-06-16 18:11 | NUR ---
Called report to [facility].
[2019-06-16 18:20] VITALS: BP 119/59
--- NOTE | 2019-06-16 19:09 | NUR ---
Discharge wound photos taken.
--- NOTE | 2019-06-16 19:17 | NUR ---
[facility] ARRIVED TO TRANSPORT PATIENT. REPORT GIVEN TO TRANSPORT TEAM.
--- NOTE | 2019-06-16 19:39 | NUR ---
Discharge instructions given as ordered. All questions and concerns addressed. Patient verbalized understanding. Medication reconciliation form completed and copy given to patient. Telemetry unit returned to ICU. Report given to [facility]. Patient transported by [facility] with all personal belongings. No distress noted at time of departure.
[2019-06-17] MEDS ORDERED: PANTOPRAZOLE 40 MG TAB PO SCH (10:00)
--- NOTE | 2019-06-17 16:28 | NUR ---
operations architect 06/15/19 and 06/16/19 On 06/15/19 I received a page from Anita GASPAR stating patient has a consult for SNF for IV ABX. I had Anita fax to [facility] and [facility]. On 06/16/19 Per Cordell GRIFFIN accepted patient. Per Alisia shahid [facility] case management operations architect auth is [id number] for [facility] and [facility] AUTH is [id number]. [facility] was set for 1900 picket [employer]. Patient transferred to [facility] on 06/16/19. Addendum: 06/17/19 at 1631 by Arlyn PAZ Amended: Links added.
== END 2019-06-16 19:00 | DRG 871 ==
LOC: ER 09:06 → EDBD 09:06 → TELE 09:07 → TELE-CENTR 20:15
PROVIDERS: ADMIT Internal Medicine; ATTEND Internal Medicine
DX: A41.50 Gram-negative sepsis, unspecified (principal); J18.9 Pneumonia, unspecified organism; N17.0 Acute kidney failure with tubular necrosis; N39.0 Urinary tract infection, site not specified; I13.0 Hypertensive heart and chronic kidney disease with heart failure and stage 1 through stage 4 chronic kidney disease, or unspecified chronic kidney disease; F03.90 Unspecified dementia, unspecified severity, without behavioral disturbance, psychotic disturbance, mood disturbance, and anxiety; F32.9 Major depressive disorder, single episode, unspecified; I50.9 Heart failure, unspecified; E55.9 Vitamin D deficiency, unspecified; K21.9 Gastro-esophageal reflux disease without esophagitis; N18.3 Chronic kidney disease, stage 3 (moderate); I69.320 Aphasia following cerebral infarction
CPT/HCPCS: 36415; 36600; 70450; 71045; 74176; 80048; 80053; 81001; 82805; 83605; 84484; 85025; 87040; 87081; 87086; 87088; 87186; 92610; 96365; 96367; 97163; G0378; J0696; J1335; J1956

== ENCOUNTER 2022-01-03 20:48 | Inpatient (IN) | payer OTHER ==
[~2022-01-03] VITALS: Ht 170.2 cm; Wt 72.6 kg
[~2022-01-03 20:48] MED LIST changes: +AML5T PO; -CLOP75TA41 PO; +CLOP75TA70 PO; +FLUC100T34 PO; -FURO20TA3 PO; +INVANZ IV; -LEVO500T21 PO; -METO25TA5 PO; -OMEP20CA74 PO; +PANT1INJ3 PO; -POTA-220 PO; +SACC250C PO; -SERT-274 PO; +SERT50TA19 PO; -TEMA30CA PO; -TRAM50TA2 PO
[2022-01-03] MEDS ORDERED: ACETAMINOPHEN 650 MG RECT SUPP PR ONE (22:07)
[2022-01-03] MEDS ORDERED: PIPERACILLIN-TAZO 4.5GM 100 ML IV ONE (22:30)
[2022-01-03] MEDS ORDERED: VANCOMYCIN 1GM/250ML 250 ML IV ONE (22:30)
[2022-01-03 23:04] LABS: Basophils # (auto) 0 10 ^3/uL (0-0.2); Basophils % (auto) 0.1 % (0.0-2.0); Eosinophils # (auto) 0 10 ^3/uL (0-0.8); Hemoglobin 11.5 g/dL (12.2-16.2); Lymphocytes # (auto) 0.6 10 ^3/uL (0.4-5.4); Lymphocytes % (auto) 8.9 % (10.0-50.0); Mean Corpuscular Hemoglobin 30.5 pg (28.0-32.0); Mean Corpuscular Hgb Conc. 33.9 g/dL (32.0-36.0); Mean Corpuscular Volume 89.8 fL (80.0-100.0); Monocytes # (auto) 0.6 10 ^3/uL (0-1.3); Monocytes % (auto) 7.8 % (0.0-12.0); Neutrophils % (auto) 83.2 % (37.0-80.0); Red Blood Cells 3.78 10^6/uL (4.0-5.20); Red Cell Distribution Width 13.1 % (11.8-14.3); White Blood Cell 7.2 10^3/uL (4.4-10.8)
[2022-01-03 23:11] LABS: Urine Blood Trace /uL (Negative); Urine Specific Gravity 1.015 (1.001-1.035)
[2022-01-03 23:15] LABS: INR 1.16 (0.9-1.15)
[2022-01-03 23:30] LABS: Albumin 2.4 g/dL (3.4-5.0); BUN/Creatinine Ratio 24.8; Calcium 8.7 mg/dL (8.5-10.1); Magnesium 2.2 mg/dL (1.6-2.6); Potassium 3.4 mmol/L (3.5-5.1)
[2022-01-03 23:34] LABS: Bilirubin, Total 1.2 mg/dL (0.2-1.0); Total Protein 5.7 g/dL (6.4-8.2)
[2022-01-04] MEDS ORDERED: SODIUM CHLORIDE 0.9% 2,000 ML IV ONE
[2022-01-04 00:01] LABS: Urine WBC Clumps PRESENT /hpf (None Seen)
[2022-01-04 00:02] LABS: Urine Bacteria MANY /hpf (None Seen); Urine WBC 102 /hpf (0 - 5)
[2022-01-04] MEDS ORDERED: NOREPINEPHRINE 8 MG/250ML KIT 250 ML IV SCH (01:00)
[2022-01-04] MEDS ORDERED: ALBUMIN 5% 250 ML IV ONE (04:45)
[2022-01-04] MEDS ORDERED: NITROGLYCERIN 0.4 MG SL TAB SL PRN (04:45)
[2022-01-04] MEDS ORDERED: ONDANSETRON HCL 4 MG/2 ML VIAL IV PRN (04:45)
[2022-01-04] MEDS ORDERED: ACETAMINOPHEN 325 MG TAB PO PRN (04:45)
[2022-01-04] MEDS ORDERED: MORPHINE SULFATE INJECTION 2 MG/ML SYRG IV PRN (04:45)
[2022-01-04] MEDS ORDERED: cefTRIAXone 1GM/50ML D5W 50 ML IV SCH (09:00)
[2022-01-04] MEDS ORDERED: SODIUM CHLORIDE 0.9% 500 ML IV ONE (10:00)
[2022-01-04] MEDS ORDERED: AZITHROMYCIN 500MG/ 250ML 250 ML IV SCH (10:00)
[2022-01-04] MEDS ORDERED: PANTOPRAZOLE 40 MG TAB PO SCH (10:00)
[2022-01-04] MEDS ORDERED: SODIUM CHLORIDE 0.9% 1,000 ML IV SCH (10:00)
[2022-01-04] MEDS ORDERED: POTASSIUM EFFERVESENT TAB 25 MEQ PO ONE (10:15)
[2022-01-04] MEDS ORDERED: AMOX500T92 PO (10:33)
[2022-01-04] MEDS ORDERED: LINE1TAB6 PO (10:33)
[2022-01-04] MEDS ORDERED: LINEZOLID 600MG/300ML 300 ML IV SCH (10:45)
[2022-01-04] MEDS: PIPERACILLIN-TAZOB 2.25GM 50 ML IV SCH ×2 (14:52→18:00)
[2022-01-04 17:30] VITALS: BP 92/45
== END 2022-01-04 18:15 | disposition hospice, home (50) | DRG 871 ==
LOC: EDBD 20:48 → ER 20:48 → TELE 01-04 04:33
PROVIDERS: ADMIT Nurse Practitioner; ATTEND Internal Medicine
DX: A41.9 Sepsis, unspecified organism (principal); J18.9 Pneumonia, unspecified organism; J96.01 Acute respiratory failure with hypoxia; N17.0 Acute kidney failure with tubular necrosis; R65.21 Severe sepsis with septic shock; E43 Unspecified severe protein-calorie malnutrition; J44.0 Chronic obstructive pulmonary disease with (acute) lower respiratory infection; N39.0 Urinary tract infection, site not specified; I69.351 Hemiplegia and hemiparesis following cerebral infarction affecting right dominant side; F03.90 Unspecified dementia, unspecified severity, without behavioral disturbance, psychotic disturbance, mood disturbance, and anxiety; E87.6 Hypokalemia; I11.0 Hypertensive heart disease with heart failure; Z20.822 Contact with and (suspected) exposure to COVID-19; I50.9 Heart failure, unspecified; K21.9 Gastro-esophageal reflux disease without esophagitis; Z68.25 Body mass index [BMI] 25.0-25.9, adult; Z88.1 Allergy status to other antibiotic agents; Z87.440 Personal history of urinary (tract) infections; Z51.5 Encounter for palliative care
CPT/HCPCS: 36415; 71045; 80053; 81001; 83605; 83735; 83880; 84484; 85025; 85610; 85730; 87040; 96361; 96365; 96367; 96368; G0378; J0696; J2543